=== PATIENT | male | born 1985 | race Caucasian/White ===

== ENCOUNTER 2024-05-25 19:29 | Emergency (ER) | payer BC ==
[~2024-05-25] VITALS: Ht 190.5 cm; Wt 141.0 kg
[2024-05-25 19:51] VITALS: TEMP 98.2; O2SAT 100
[2024-05-25 20:13] LABS: BASOPHILS % 0.3 % (0.0-2.0); EOSINOPHILS % 0.3 % (0.0-5.0); HEMATOCRIT. 44.5 % (42.0-52.0); HEMOGLOBIN. 14.4 g/dL (14.0-18.0); LYMPHOCYTES % 8.9 % (20.0-50.0); MEAN CORPUSCULAR HEMOGLOBIN 29.8 pg (28.0-32.0); MEAN CORPUSCULAR HGB CONC 32.4 g/dL (31.0-37.0); MEAN CORPUSCULAR VOLUME 92.1 fL (80.0-94.0); MEAN PLATELET VOLUME 7.9 fl (7.4-10.4); MONOCYTES % 5.7 % (2.0-8.0); NEUTROPHILS % 84.8 % (40.0-76.0); PLATELET 278 x1000/uL (130-400); RED BLOOD CELL COUNT 4.83 mill/uL (4.7-6.1); RED CELL DISTRIBUTION WIDTH 13.9 % (11.6-14.6); WHITE BLOOD COUNT 14.8 x1000/uL (4.5-11.0)
[2024-05-25 20:18] LABS: CHLORIDE 110 mEq/L (98-107); POTASSIUM 4.1 mEq/L (3.5-5.1); SODIUM 140 mEq/L (136-145)
[2024-05-25 20:19] LABS: CALCIUM 10.1 mg/dL (8.7-10.4); CARBON DIOXIDE 24 mEq/L (21-32)
[2024-05-25 20:24] LABS: CREATININE 1.3 mg/dL (0.6-1.3); GLUCOSE 134 mg/dL (70-105); UREA NITROGEN BLOOD 11 mg/dL (9-23)
[2024-05-25 20:26] LABS: ALANINE AMINOTRANSFERASE 41 IU/L (10-49); ASPARTATE AMINOTRANSFERASE 28 IU/L (<34); BILIRUBIN DIRECT 0.2 mg/dL (<=3.0)
[2024-05-25 20:27] LABS: BILIRUBIN TOTAL 0.7 mg/dL (0.1-1.0); PROTEIN TOTAL 7.6 g/dL (6.0-8.3)
[2024-05-25 20:34] LABS: CLARITY URINE CLEAR (CLEAR); COLOR URINE YELLOW (YELLOW); PROTEIN URINE NEGATIVE (NEGATIVE); SPECIFIC GRAVITY URINE 1.019 (1.005-1.030)
[2024-05-25 20:35] LABS: GLUCOSE URINE NEGATIVE (NEGATIVE); KETONES URINE TRACE (NEGATIVE); LEUKOCYTE ESTERASE URINE NEGATIVE (NEGATIVE); NITRITE URINE NEGATIVE (NEGATIVE); OCCULT BLOOD URINE 2+ (NEGATIVE); UROBILINOGEN URINE 0.2 E.U./dL (0.2-1.0)
[2024-05-25] MEDS: ONDANSETRON 4MG ODT PO ONE (21:35)
[2024-05-25 21:56] VITALS: BP 137/86; PULSE 80
[2024-05-25] MEDS: KETOROLAC 15MG/ML VIAL IM ONE (21:56)
[2024-05-25] MEDS ORDERED: TAMS-11 PO (22:53)
[2024-05-25] MEDS ORDERED: IBUP-2029 MT (22:53)
[2024-05-25] MEDS ORDERED: ONDA4TAB11 PO (22:55)
[2024-05-25 23:15] VITALS: RESP 16
[2024-05-25] MEDS ORDERED: IOHEXOL-300 100 ML BOTTLE ONE (23:43)
== END 2024-05-25 23:15 | disposition home or self-care (01) ==
LOC: ER 19:29
DX: N20.1 Calculus of ureter (principal)
CPT/HCPCS: 99285; 74177; 80076; 80048; 81003; 85025; 36415; 96372; Q9967; Q0162; J1885